=== PATIENT | male | born 1980 ===

== ENCOUNTER 2023-08-24 23:04 | Emergency (ER) | payer BC ==
[2023-08-24] MEDS ORDERED: Orphenadrine 60 MG/2 ML Inj IM ONE (23:16)
[2023-08-24] MEDS ORDERED: Ketorolac 30 MG/ML SDV IM ONE (23:16)
[2023-08-24] MEDS ORDERED: methylPREDNISolone Sodium Succinate 125 MG/2 ML SDV IM ONE (23:17)
[2023-08-24] MEDS ORDERED: Lidocaine 4% 1 each Patch TOP PRN (23:18)
== END 2023-08-25 00:20 | disposition home or self-care (01) ==
LOC: MW.ED 23:04
DX: M54.50 Low back pain, unspecified (principal)
CPT/HCPCS: 72128; 72131; 96372; 99283; A9270; J1885; J2360; J2930